=== PATIENT | male | born 1940 | race Caucasian/White ===

== ENCOUNTER → 2017-09-23 | Outpatient (CLI) | payer OTHER ==
[~2017-09-23] MED LIST: APIDRA100 UNITS/ SC; ASPIRIN E.C.81 M1 PO; ATORVASTATIN CA40 MG PO; Bactrim,Septra DS 80 PO; Colace PO; Dulcolax PO; FLOMAX0.4 MG PO; Flexeril PO; Flomax PO; GLUCOPHAGE1000 MG PO; HYDROXYCHLOROQ200 MG PO; KEFLEX500 MG PO; LANTUS 10100 UNITS/ SC; LANTUS 3 M100 UNITS/ SC; LISINOPRIL2.5 MG PO; LOPRESSOR100 MG PO; LORTAB 7.5/51 TABLET PO; Lopressor PO; METOPROLOL TART50 MG PO; NITROSTAT,NITR0.4 M1 SL; NOVOLOG 10100 UNITS/ SC; NOVOLOG PE100 UNITS/ SC; Naprosyn PO; OMEPRAZOLE40 M1 PO; Percocet 10/325,Endo PO; Percocet 7.5/325,End PO; THERAGRAN1 TABLET PO; Vancomycin IV; Zestril,Prinivil PO; Zocor PO
== END | disposition home or self-care (01) ==
LOC: RAD 09-15 14:00
PROC: 3E0R3KZ Introduction of Other Diagnostic Substance into Spinal Canal, Percutaneous Approach (ICD-10-PCS; principal; 2017-09-23)
DX: M47.897 Other spondylosis, lumbosacral region (principal); M25.78 Osteophyte, vertebrae; M51.86 Other intervertebral disc disorders, lumbar region; M46.96 Unspecified inflammatory spondylopathy, lumbar region; M24.28 Disorder of ligament, vertebrae; M48.07 Spinal stenosis, lumbosacral region; Z98.1 Arthrodesis status; R29.898 Other symptoms and signs involving the musculoskeletal system; T84.216A Breakdown (mechanical) of internal fixation device of vertebrae, initial encounter; Z09 Encounter for follow-up examination after completed treatment for conditions other than malignant neoplasm
CPT/HCPCS: 62304; 72132